=== PATIENT | male | born 1955 | race Caucasian/White ===

== ENCOUNTER 2016-08-05 07:48 | Emergency (ER) | payer MEDICARE, OTHER ==
[2016-08-05] MEDS ORDERED: SODIUM CHLORIDE 0.9% 1,000 ML IV STA (08:20)
[2016-08-05] MEDS ORDERED: ASPIRIN 325 MG TAB PO STA (08:21)
--- NOTE | 2016-08-05 08:23 | ED ---
General Adult HPI - General Source: patient, RN notes reviewed Mode of arrival: ambulatory Limitations: no limitations <Delmar Reed - Last Filed: 08/05/16 10:03> <Ken Stevenson - Last Filed: 08/05/16 10:14> - General Chief complaint: Upper Respiratory Infection Stated complaint: cough Time Seen by Provider: 08/05/16 08:12 - History of Present Illness Initial comments: Patient is a 60-year-old male who presents emergency room today with chief complaint of shortness of breath on and off over the last week. He does admit to upper respiratory symptoms of cough congestion. He admits to symptoms. Production but states the cough seems to be improving. He states his nose has become more short of breath over the last week. He gives an example of walking from the parking lot here to the emergency room become short of breath. He states resting now in the ER he feels comfortable once again has no shortness of breath. Patient denies any pain. He denies any other complaints or symptoms. Patient denies any recent fever, chills, chest pain, back pain, abdominal pain, nausea or vomiting, numbness or tingling, dysuria or hematuria, constipation or diarrhea, headaches or visual changes, or any other complaints. (Delmar Reed) - Related Data Home Medications Medication Instructions Recorded Confirmed Insulin Glargine,Hum.rec.anlog 28 unit SQ HS 08/05/16 08/05/16 [Lantus Solostar] Insulin Lispro [humaLOG Kwikpen] See Protocol SQ AC-TID 08/05/16 08/05/16 Metoprolol Tartrate 25 mg PO BID 08/05/16 08/05/[address] [Myfortic] 180 mg PO TID 08/05/16 08/05/16 Paricalcitol 1 mcg PO BID 08/05/16 08/05/16 Tacrolimus [Prograf] 1 mg PO BID 08/05/16 08/05/16 predniSONE 5 mg PO DAILY 08/05/16 08/05/16 Allergies Allergy/AdvReac Type Severity Reaction Status Date / Time No Known Allergies Allergy Verified 08/05/16 09:02 Review of Systems ROS Other: All systems not noted in ROS Statement are negative. <Delmar Reed - Last Filed: 08/05/16 10:03> ROS Other: All systems not noted in ROS Statement are negative. <GrahamKen - Last Filed: 08/05/16 10:14> ROS Statement: Those systems with pertinent positive or pertinent negative responses have been documented in the HPI. Past Medical History Past Medical History: Diabetes Mellitus History of Any Multi-Drug Resistant Organisms: None Reported Past Psychological History: No Psychological Hx Reported Smoking Status: Former smoker Past Alcohol Use History: None Reported Past Drug Use History: None Reported <Delmar Reed - Last Filed: 08/05/16 10:03> General Exam Limitations: no limitations <DerekDelmar - Last Filed: 08/05/16 10:03> <GarhamKen - Last Filed: 08/05/16 10:14> - General Exam Comments Initial Comments: General: The patient is awake and alert, in no distress, and does not appear acutely ill. Eye: Pupils are equal, round and reactive to light, extra-ocular movements are intact. No nystagmus. There is normal conjunctiva bilaterally. No signs of icterus. Ears, nose, mouth and throat: There are moist mucous membranes and no oral lesions. Neck: The neck is supple, there is no tenderness or JVD. Cardiovascular: There is a regular rate and rhythm. No murmur, rub or gallop is appreciated. Respiratory: Lungs are clear to auscultation, respirations are non-labored, breath sounds are equal. No wheezes, stridor, rales, or rhonchi. Gastrointestinal: Soft, non-distended, non-tender abdomen without masses or organomegaly noted. There is no rebound or guarding present. No CVA tenderness. Bowel sounds are unremarkable. Musculoskeletal: Normal ROM, no tenderness. Strength 5/5. Sensation intact. Pulses equal bilaterally 2+. Neurological: A&O x 3. CN II-XII intact, There are no obvious motor or sensory deficits. Coordination appears grossly intact. Speech is normal. Skin: Skin is warm and dry and no rashes or lesions are noted. Psychiatric: Cooperative, appropriate mood & affect, normal judgment. (Delmar Reed) Course <Delmar Reed - Last Filed: 08/05/16 10:03> <Ken Stevenson - Last Filed: 08/05/16 10:14> Vital Signs 08/05/16 08/05/16 08/05/16 07:52 07:57 08:03 Temperature 98.2 F Pulse Rate 80 78 Respiratory 20 15 Rate Blood Pressure 145/65 O2 Sat by Pulse 99 98 Oximetry 08/05/16 09:36 Temperature Pulse Rate 75 Respiratory 15 Rate Blood Pressure 137/66 O2 Sat by Pulse 98 Oximetry - Reevaluation(s) Reevaluation #1: 08/05/16 10:13 I did do a [id number] evaluation the patient did discuss the findings with him and his family. The patient refuses to stay at this hospital and has elected to leave AGAINST MEDICAL ADVICE. Patient states he will follow-up with his doctors at [facility]. I did inform him of his elevated troponin and the risk of heart damage he still wants to leave the hospital. He is agreed to accept responsibility. (Ken Stevenson) EKG Findings - EKG Comments: EKG Findings:: EKG performed at 0811: Shows a normal sinus rhythm at 77 bpm NM interval 152. QRS 126. QT/QTc 426/42. 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 No acute ST changes. <Delmar Reed - Last Filed: 08/05/16 10:03> Medical Decision Making - Lab Data Result diagrams: 08/05/16 08:25 08/05/16 08:25 <Delmar Reed - Last Filed: 08/05/16 10:03> - Lab Data Result diagrams: 08/05/16 08:25 08/05/16 08:25 <Ken Stevenson - Last Filed: 08/05/16 10:14> - Medical Decision Making Patient's x-ray reviewed shows no sign of pneumonia. Shows evidence for bronchitis. Patient's labs been reviewed does show mildly elevated troponin. Patient does have mildly elevated kidney function. History of kidney transplant. Patient requested having his labs of tacrolimus checked today which is still pending. Patient's remaining labs reviewed. Case discussed with attending physician Dr. Stevenson who also saw patient at bedside and discussed the importance of being admitted to the hospital started on medications and to be seen by cardiology. Patient and at bedside state they would like to go home and states he would rather follow-up at [facility] where the rest of his doctors are. Again it was stressed by myself at bedside with patient and family the importance of staying here for medications. Patient states does not want to be transferred by ambulance he states he will drive himself down to [facility] presents for the rest of his doctors are. Patient states understanding of the severity of the situation and will sign out AMA. (Delmar Reed) - Lab Data Lab Results 08/05/16 08/05/16 08/05/16 Range/Units 08:25 08:25 08:25 WBC 6.3 (3.8-10.6) k/uL RBC 5.74 (4.30-5.90) m/uL Hgb 15.2 (13.0-17.5) gm/dL Hct 48.4 (39.0-53.0) % MCV 84.4 (80.0-100.0) fL MCH 26.5 (25.0-35.0) pg MCHC 31.4 (31.0-37.0) g/dL RDW 13.9 (11.5-15.5) % Plt Count 258 (150-450) k/uL Neutrophils % 58 % Lymphocytes % 25 % Monocytes % 8 % Eosinophils % 7 % Basophils % 1 % Neutrophils # 3.7 (1.3-7.7) k/uL Lymphocytes # 1.6 (1.0-4.8) k/uL Monocytes # 0.5 (0-1.0) k/uL Eosinophils # 0.4 (0-0.7) k/uL Basophils # 0.0 (0-0.2) k/uL Hypochromasia Moderate PT (9.0-12.0) sec INR (<1.1) APTT (22.0-30.0) sec Sodium 142 (137-145) mmol/L Potassium 5.0 (3.5-5.1) mmol/L Chloride 105 (98-107) mmol/L Carbon Dioxide 23 (22-30) mmol/L Anion Gap 14 mmol/L BUN 25 H (9-20) mg/dL Creatinine 1.31 H (0.66-1.25) mg/dL Est GFR (MDRD) Af Amer >60 (>60 ml/min/1.73 sqM) Est GFR (MDRD) Non-Af 56 (>60 ml/min/1.73 sqM) Glucose 125 H (74-99) mg/dL Calcium 9.7 (8.4-10.2) mg/dL Magnesium 1.7 (1.6-2.3) mg/dL Total Bilirubin 0.6 (0.2-1.3) mg/dL AST 34 (17-59) U/L ALT 26 (21-72) U/L Alkaline Phosphatase 89 (38-126) U/L Total Creatine Kinase 105 (55-170) U/L CK-MB (CK-2) 1.6 (0.0-2.4) ng/mL CK-MB (CK-2) Rel Index 1.5 Troponin I 0.051 H* (0.000-0.034) ng/mL Total Protein 7.2 (6.3-8.2) g/dL Albumin 4.0 (3.5-5.0) g/dL 08/05/16 Range/Units 08:25 WBC (3.8-10.6) k/uL RBC (4.30-5.90) m/uL Hgb (13.0-17.5) gm/dL Hct (39.0-53.0) % MCV (80.0-100.0) fL MCH (25.0-35.0) pg MCHC (31.0-37.0) g/dL RDW (11.5-15.5) % Plt Count (150-450) k/uL Neutrophils % % Lymphocytes % % Monocytes % % Eosinophils % % Basophils % % Neutrophils # (1.3-7.7) k/uL Lymphocytes # (1.0-4.8) k/uL Monocytes # (0-1.0) k/uL Eosinophils # (0-0.7) k/uL Basophils # (0-0.2) k/uL Hypochromasia PT 11.5 (9.0-12.0) sec INR 1.2 (<1.1) APTT 23.2 (22.0-30.0) sec Sodium (137-145) mmol/L Potassium (3.5-5.1) mmol/L Chloride (98-107) mmol/L Carbon Dioxide (22-30) mmol/L Anion Gap mmol/L BUN (9-20) mg/dL Creatinine (0.66-1.25) mg/dL Est GFR (MDRD) Af Amer (>60 ml/min/1.73 sqM) Est GFR (MDRD) Non-Af (>60 ml/min/1.73 sqM) Glucose (74-99) mg/dL Calcium (8.4-10.2) mg/dL Magnesium (1.6-2.3) mg/dL Total Bilirubin (0.2-1.3) mg/dL AST (17-59) U/L ALT (21-72) U/L Alkaline Phosphatase (38-126) U/L Total Creatine Kinase (55-170) U/L CK-MB (CK-2) (0.0-2.4) ng/mL CK-MB (CK-2) Rel Index Troponin I (0.000-0.034) ng/mL Total Protein (6.3-8.2) g/dL Albumin (3.5-5.0) g/dL Disposition Time of Disposition: 10:06 <Delmar Reed - Last Filed: 08/05/16 10:03> <Ken Stevenson - Last Filed: 08/05/16 10:14> Clinical Impression: Elevated troponin, Shortness of breath Disposition: Left Against Medical Advice Condition: Undetermined Instructions: Chest Pain (ED) Additional Instructions: Please proceed directly to [facility] for further evaluation of your chest pain and elevated cardiac markers. Referrals: None,Stated [Primary Care Provider] - 1-2 days
[2016-08-05 08:45] LABS: Basophils % (A) 1 %; CH 26.1; Eosinophils # (A) 0.4 k/uL (0-0.7); Eosinophils % (A) 7 %; HCT 48.4 % (39.0-53.0); HDW 2.93; HGB 15.2 gm/dL (13.0-17.5); Hypochromasia Moderate; Luc # (Auto) 0.16; Luc % (Auto) 3; Lymphocytes # (A) 1.6 k/uL (1.0-4.8); Lymphocytes % (A) 25 %; MCH 26.5 pg (25.0-35.0); MCHC 31.4 g/dL (31.0-37.0); MCV 84.4 fL (80.0-100.0); Mean Platelet Volume 7.7; Monocytes # (A) 0.5 k/uL (0-1.0); Monocytes % (A) 8 %; Neutrophils # (A) 3.7 k/uL (1.3-7.7); Neutrophils % (A) 58 %; RBC 5.74 m/uL (4.30-5.90); RDW 13.9 % (11.5-15.5); WBC 6.3 k/uL (3.8-10.6); WBC (Perox) 6.26
--- NOTE | 2016-08-05 08:49 | XR ---
EXAMINATION TYPE: XR chest 2V DATE OF EXAM: 08/05/2016 8:43 AM COMPARISON: None HISTORY: 60-year-old male with chest pain TECHNIQUE: PA and lateral views FINDINGS: The cardiomediastinal silhouette, aorta, and pulmonary vasculature are within normal limits. Mild int erstitial prominence and prominence. No consolidation or pleural effusion. Old healed rib fracture de formities. IMPRESSION: Mild interstitial prominence may be chronic or could represent bronchitis or chronic asthma.
[2016-08-05 09:02] LABS: Anion Gap 14 mmol/L; Calcium 9.7 mg/dL (8.4-10.2); Carbon Dioxide 23 mmol/L (22-30); Chloride 105 mmol/L (98-107); Glucose 125 mg/dL (74-99); Non-African American GFR(MDRD) 56 (>60 ml/min/1.73 sqM); Sodium 142 mmol/L (137-145); Total Bilirubin 0.6 mg/dL (0.2-1.3); Total Protein 7.2 g/dL (6.3-8.2)
[2016-08-05 09:04] LABS: INR 1.2 (<1.1); Partial Thromboplastin Time 23.2 sec (22.0-30.0); Prothrombin Time 11.5 sec (9.0-12.0)
[2016-08-05 09:14] LABS: ALT 26 U/L (21-72); AST 34 U/L (17-59); Alkaline Phosphatase 89 U/L (38-126); Blood Urea Nitrogen 25 mg/dL (9-20); Magnesium 1.7 mg/dL (1.6-2.3)
[2016-08-05 09:30] LABS: Creatine Kinase MB 1.6 ng/mL (0.0-2.4)
[2016-08-05 09:34] LABS: Troponin I 0.051 ng/mL (0.000-0.034)
[2016-08-05] MEDS ORDERED: NITROGLYCERIN OINT 1 INCH/GM PACKET TOPICAL STA (09:43)
[2016-08-05 10:35] VITALS: BP 134/77; PULSE 76; RESP 16; TEMP 98
== END 2016-08-05 10:44 | disposition left against medical advice (07) ==
LOC: EC 07:48
DX: R79.89 Other specified abnormal findings of blood chemistry (principal); R06.02 Shortness of breath; E11.9 Type 2 diabetes mellitus without complications; Z79.4 Long term (current) use of insulin; Z87.891 Personal history of nicotine dependence; Z53.21 Procedure and treatment not carried out due to patient leaving prior to being seen by health care provider; Z79.899 Other long term (current) drug therapy
CPT/HCPCS: 36415; 71020; 80053; 80197; 82550; 82553; 83735; 84484; 85025; 85610; 85730; 93005; 99284

== ENCOUNTER → 2016-09-25 | Outpatient (CLI) | payer MEDICARE, OTHER | END | disposition home or self-care (01) | LOC: LABWHC1 09:55 | PROVIDERS: ATTEND Internal Medicine Nephrology | DX: I12.9 Hypertensive chronic kidney disease with stage 1 through stage 4 chronic kidney disease, or unspecified chronic kidney disease (principal); N18.3 Chronic kidney disease, stage 3 (moderate); T86.890 Other transplanted tissue rejection; E11.69 Type 2 diabetes mellitus with other specified complication; E87.0 Hyperosmolality and hypernatremia; E55.9 Vitamin D deficiency, unspecified; R60.0 Localized edema; Z94.0 Kidney transplant status; Z79.4 Long term (current) use of insulin; Z79.899 Other long term (current) drug therapy | CPT/HCPCS: 36415; 80197 ==

== ENCOUNTER → 2016-10-27 | Outpatient (CLI) | payer MEDICARE, OTHER ==
[2016-10-27 08:45] LABS: Basophils % (A) 1 %; CH 26.7; CHCM 31.3; Eosinophils # (A) 0.2 k/uL (0-0.7); Eosinophils % (A) 5 %; HCT 54.6 % (39.0-53.0); HDW 2.96; HGB 16.8 gm/dL (13.0-17.5); Hypochromasia Slight; Luc # (Auto) 0.08; Luc % (Auto) 2; Lymphocytes % (A) 22 %; MCH 26.4 pg (25.0-35.0); MCHC 30.8 g/dL (31.0-37.0); MCV 85.6 fL (80.0-100.0); Mean Platelet Volume 8.4; Monocytes # (A) 0.4 k/uL (0-1.0); Monocytes % (A) 8 %; Neutrophils # (A) 2.8 k/uL (1.3-7.7); Neutrophils % (A) 63 %; RBC 6.38 m/uL (4.30-5.90); RDW 14.2 % (11.5-15.5); WBC 4.5 k/uL (3.8-10.6); WBC (Perox) 4.83
[2016-10-27 11:37] LABS: % Iron Saturation 37.9 % (20-50)
== END | disposition home or self-care (01) ==
LOC: LABWHC1 07:23
PROVIDERS: ATTEND Internal Medicine Nephrology
DX: T86.890 Other transplanted tissue rejection (principal); D63.1 Anemia in chronic kidney disease; E87.0 Hyperosmolality and hypernatremia; N18.3 Chronic kidney disease, stage 3 (moderate); I12.9 Hypertensive chronic kidney disease with stage 1 through stage 4 chronic kidney disease, or unspecified chronic kidney disease; E11.69 Type 2 diabetes mellitus with other specified complication; E55.9 Vitamin D deficiency, unspecified; Z94.0 Kidney transplant status; Z79.899 Other long term (current) drug therapy; Z94.83 Pancreas transplant status
CPT/HCPCS: 36415; 80197; 82306; 82728; 83540; 83550; 83970; 85025